=== PATIENT | male | born 1990 ===

== ENCOUNTER 2020-11-18 16:20 | Emergency (ER) | payer SELFPAY ==
--- NOTE | 2020-11-18 16:25 | PC.NURSE ---
Pt states I don't want to be seen, ambulated out of ED with steady gait .
== END 2020-11-18 16:30 | disposition left against medical advice (07) ==
DX: Z53.21 Procedure and treatment not carried out due to patient leaving prior to being seen by health care provider (principal)
CPT/HCPCS: 99199